=== PATIENT | female | born 1970 | race Caucasian/White ===

== ENCOUNTER 2023-07-08 12:57 | Emergency (ER) | payer MEDICAID, SELFPAY ==
[2023-07-08 13:15] VITALS: BP 137/76; PULSE 82; RESP 16; TEMP 36.7; O2SAT 98; BMI 20.6
--- NOTE | 2023-07-08 13:58 | ED.LOWEXIN ---
HPI - Extremity Injury (Lower) General Chief Complaint: Extremity Injury, Lower Stated Complaint: ?FROSTBITE, LEG PAIN Time Seen by Provider: 07/08/23 13:29 Source: patient and police Mode of arrival: EMS History of Present Illness HPI Narrative: 52-year-old female recently found in the [place]ire with multiple injuries and evaluated by medical personnel and currently at the [facility] concerned about both big toes. Related Data Allergies Allergy/AdvReac Type Severity Reaction Status Date / Time Sulfa (Sulfonamide Allergy Unknown Verified 07/08/23 13:18 Antibiotics) potato AdvReac Rash Verified 07/08/23 13:18 Review of Systems Review of Systems: Pertinent positives and negatives as stated in HPI PMFSH Past Medical History Source: nursing notes reviewed Onset Date is defined in the Problem List Problems that require an onset date and time if occurred within 24 hrs of arrival to the ED Aortic Dissection and Rupture; Neurologic impairment; Cardiopulmonary Arrest; Endotracheal Intubation; Insertion or Replacement of Mechanical Circulatory Assist Device Social History Social History Advance Directives: No Advance Directives Information Provided: No Physical Exam Vital Signs: Vital Signs: Last Vital Signs Temp 98.0 F 07/08/23 13:15 Pulse 82 07/08/23 13:15 Resp 16 07/08/23 13:15 BP 137/76 07/08/23 13:15 Pulse Ox 98 07/08/23 13:15 O2 Del Method Room Air 07/08/23 13:15 BMI result Body Mass Index 20.6 VITAL SIGNS: Reviewed. GENERAL: Well developed, well nourished, in no acute distress. HEAD: Normocephalic/patient has old contusion to the left temporal area with ecchymosis around the left orbit EYES: PERRLA, EOMI EARS: Ext canals without abnormality NOSE: Nares patent bilateral OROPHARYNX: no oral lesions noted, posterior pharynx clear NECK: Supple, no adenopathy LUNGS: Normal breath sounds. No adventitious sounds or accessory muscle use. SpO2<98> CARDIOVASCULAR: Regular rate and rhythm without noted murmurs ABDOMEN: Soft, non-tender, non-distended with bowel sounds. MUSCULOSKELETAL: No tenderness, deformities, or effusions noted on gross inspection. EXTREMITIES: No cyanosis, clubbing or edema. BOTH BIG TOES: There is noted mild erythema with mild edema no obvious injury or deformity, some discoloration of both toenails SKIN: Inspection of the skin reveals no rashes NEUROLOGIC: Alert and oriented x 3. Strength and sensation to light touch were grossly intact x 4. Medical Decision Making Medical Decision Making [facility] Narrative: 52-year-old female with history and clinical presentation consistent with recovering mild frostbite to bilateral big toes, there are no areas of ulcerations/blistering/pale skin. My interpretation is that patient has well-healing bilateral big toe cold exposure. She is otherwise discharged with instructions to take Tylenol ibuprofen. Differential Diagnosis Differential Diagnoses: The differential diagnosis associated with the presentation includes Please see the discussion above Admission/Observation Consideration of admission/observation: Escalation of care including admission/observation considered Please see the discussion above Discharge Plan Discharge Clinical Impression: Frostbite of both great toes Patient Disposition: Xfer Other Instructions: Frostbite (ED) Additional Instructions: 1. Tylenol 1000 mg, orally, every 6 hours as needed for pain control. Do not exceed 4000 mg within 24 hours. 2. Ibuprofen 400 mg, orally with milk or food, every 6 hours as needed pain control. 3. Avoid getting toes cold, wet outside Your condition is beginning to resolve and will take an additional 4-5 days. Return to the ER for any worsening symptoms.
== END 2023-07-08 16:11 | disposition other institution (70) ==
PROVIDERS: Emergency Provider Student in an Organized Health Care Education/Training Program
DX: T33.832A Superficial frostbite of left toe(s), initial encounter (principal); T33.831A Superficial frostbite of right toe(s), initial encounter; W93.8XXA Exposure to other excessive cold of man-made origin, initial encounter; Y93.9 Activity, unspecified; Y92.828 Other wilderness area as the place of occurrence of the external cause; Y99.9 Unspecified external cause status
CPT/HCPCS: 99283